=== PATIENT | male | born 1960 | race Caucasian/White ===

== ENCOUNTER 2019-08-20 15:23 | Inpatient (IN) | payer BC ==
[~2019-08-20] VITALS: Ht 172.7 cm; Wt 66.0 kg
[2019-08-20 15:57] LABS: BASOPHILS ABSOLUTE AUTO 0.05 K/mm3 (0.00-0.23); BASOPHILS PERCENT AUTO 1 % (0-2); EOSINOPHILS ABSOLUTE AUTO 0.13 K/mm3 (0.00-0.68); EOSINOPHILS PERCENT AUTO 2 % (0-6); Hematocrit 46.1 % (37.0-53.0); Hemoglobin 15.2 g/dL (13.5-17.5); IMMATURE GRAN ABSOLUTE AUTO 0.03 K/mm3 (0.00-0.10); IMMATURE GRAN PERCENT AUTO 0 % (0-1); LYMPHOCYTES ABSOLUTE AUTO 2.64 K/mm3 (0.84-5.20); LYMPHOCYTES PERCENT AUTO 36 % (21-46); MONOCYTES ABSOLUTE AUTO 0.57 K/mm3 (0.16-1.47); MONOCYTES PERCENT AUTO 8 % (4-13); Mean Corpuscular HGB 30.3 pg (26.0-34.0); Mean Corpuscular Volume 92 fL (80-100); Mean Platelet Volume 10.3 fL (9.1-12.4); NEUTROPHILS ABSOLUTE AUTO 4.01 K/mm3 (1.96-9.15); NEUTROPHILS PERCENT AUTO 54 % (41-73); Platelet Count 243 K/mm3 (150-400); RDW Coefficient Variation 12.6 % (11.7-14.2); RDW Standard Deviation 42.2 fL (35.1-46.3); Red Blood Cell Count 5.01 M/mm3 (4.30-5.90); White Blood Cell Count 7.43 K/mm3 (4.00-11.30)
[2019-08-20 16:15] LABS: Anion Gap 6 mmol/L (6-16); Blood Urea Nitrogen 14 mg/dL (8-24); Bun/Creatinine Ratio 14.7 (12.0-20.0); CO2, Blood 25 mmol/L (21-32); Calcium, Blood 9.5 mg/dL (8.5-10.1); Chloride, Blood 108 mmol/L (98-108); Creatinine, Blood 0.95 mg/dL (0.60-1.20); Glomerular Filtration Rate >60 (60-); Glucose, Blood 228 mg/dL (70-99); Sodium, Blood 139 mmol/L (136-145)
[2019-08-20 17:47] LABS: International Normalized Ratio 0.99; Prothrombin Time Results 10.6 Sec (9.7-11.5)
[2019-08-20] MEDS ORDERED: CARVEDILOL6.25 MG PO (18:11)
[2019-08-20] MEDS ORDERED: LIPITOR80 MG PO (18:11)
[2019-08-20] MEDS ORDERED: BUPROPION XL150 M1 PO (18:11)
[2019-08-20] MEDS ORDERED: LISI5 PO (18:12)
[2019-08-20] MEDS ORDERED: METFORMIN HCL500 M2 PO (18:12)
[2019-08-20] MEDS ORDERED: PRASUGREL HCL10 MG PO (18:12)
[2019-08-20] MEDS ORDERED: ASPIR 8181 MG PO (18:19)
[2019-08-20] MEDS ORDERED: FARXIGA10 MG PO (18:19)
--- NOTE | 2019-08-20 22:21 | NUR ---
ASSUMED CARE NOTE: ASSUMED CARE OF PT AT 2009, RECEVIED REPORT FROM FRED GONZALEZ RN. PT CAME UNIT VIA STRETCHER. PT ORIENTED TO ROOM. PT IS ALERT AND ORIENTEDX4, ABLE TO ANSWER QUESTIONS APPROPRIATLY. PT CAME ON 7L OF 02 VIA OXYMIZER, SPO2 @ 94% PT IN TRIPOD POSITION, UNABLE TO LAY FLAT. PT PLACED ON BIPAP WITH SETTINGS AT 12/6, 30% RR IN THE MID 30'S . HEPARIN INFUSING @ 15U/KG/HR, PUMP VERIFIED WITH JOSÉ SHAH. PT HAS 2+ PITTING EDEMA TO BLE, FAINT PULSES FELT. STRONG PULSES TO BILAT RADIAL. PT IN SINUS TACH WITH HR @ 110. BOWEL TONES HEARD IN ALL FOUR QUADRANTS. PT STATES HE HAS NO ISSUES WITH URINATION. BP STABLE, AFEBRILE. WILL CONTINUE TO MONITOR T/O SHIFT.
[2019-08-20 22:53] LABS: U Amphetamine Screen Not Detected; U Barbituate Screen Not Detected; U Benzodiazapine Screen Not Detected; U Buprenorphine Screen Not Detected; U Cannabinoids Screen Not Detected; U Cocaine Screen Not Detected; U Methadone Screen Not Detected; U Methamphetamine Screen Not Detected; U Opiates Screen Not Detected; U Oxycodone Screen Not Detected; U Phencyclidine Screen Not Detected; U Propoxyphene Screen Not Detected
--- NOTE | 2019-08-21 01:41 | NUR ---
UPDATE: PT GIVEN ATIVAN EARLIER IN THE SHIFT PER EMAR, DUE TO ANXIETY. PT IS NOW SLEEPING. PT IN SR WITH BBB, HR IN THE 80-90'S. VSS. PT HAD ONE INCONTINENT VIOD, AFTER LASIX ADMINISTRATION. ATTENDS IN PLACE.
[2019-08-21 03:44] LABS: BASOPHILS ABSOLUTE AUTO 0.04 K/mm3 (0.00-0.23); BASOPHILS PERCENT AUTO 1 % (0-2); EOSINOPHILS ABSOLUTE AUTO 0.07 K/mm3 (0.00-0.68); EOSINOPHILS PERCENT AUTO 1 % (0-6); Hematocrit 41.9 % (37.0-53.0); Hemoglobin 13.9 g/dL (13.5-17.5); IMMATURE GRAN ABSOLUTE AUTO 0.03 K/mm3 (0.00-0.10); IMMATURE GRAN PERCENT AUTO 0 % (0-1); LYMPHOCYTES ABSOLUTE AUTO 2.43 K/mm3 (0.84-5.20); LYMPHOCYTES PERCENT AUTO 29 % (21-46); MONOCYTES ABSOLUTE AUTO 0.89 K/mm3 (0.16-1.47); MONOCYTES PERCENT AUTO 11 % (4-13); Mean Corpuscular HGB 31.1 pg (26.0-34.0); Mean Corpuscular HGB Conc 33.2 g/dL (31.5-36.5); Mean Corpuscular Volume 94 fL (80-100); Mean Platelet Volume 10.2 fL (9.1-12.4); NEUTROPHILS ABSOLUTE AUTO 4.95 K/mm3 (1.96-9.15); NEUTROPHILS PERCENT AUTO 59 % (41-73); Platelet Count 196 K/mm3 (150-400); RDW Coefficient Variation 12.7 % (11.7-14.2); RDW Standard Deviation 43.7 fL (35.1-46.3); Red Blood Cell Count 4.47 M/mm3 (4.30-5.90); White Blood Cell Count 8.41 K/mm3 (4.00-11.30)
[2019-08-21 04:08] LABS: Alanine Aminotransfer (ALT/SGP 17 U/L (12-78); Albumin, Blood 3.1 g/dL (3.4-5.0); Albumin/Globulin Ratio 0.9 (0.8-1.8); Alk Phos 101 U/L (50-136); Anion Gap 5 mmol/L (6-16); Aspartate Aminotrans (AST/SGOT 17 U/L (12-37); Bilirubin, Total 1.4 mg/dL (0.1-1.0); Blood Urea Nitrogen 12 mg/dL (8-24); Bun/Creatinine Ratio 15.5 (12.0-20.0); CO2, Blood 26 mmol/L (21-32); Calcium, Blood 8.7 mg/dL (8.5-10.1); Chloride, Blood 110 mmol/L (98-108); Creatinine, Blood 0.77 mg/dL (0.60-1.20); Globulin, Blood 3.3 g/dL (2.2-4.0); Glomerular Filtration Rate >60 (60-); Glucose, Blood 138 mg/dL (70-99); Magnesium, Blood 2.2 mg/dL (1.6-2.4); Potassium, Blood 3.5 mmol/L (3.5-5.5); Sodium, Blood 141 mmol/L (136-145); Total Protein, Blood 6.4 g/dL (6.4-8.2)
--- NOTE | 2019-08-21 04:23 | NUR ---
CALLED , REGARDING ELEVATING TROP. WILL LOOK OVER CHART FOR CARDIAC CONSULT.
--- NOTE | 2019-08-21 05:40 | NUR ---
SHIFT SUMMARY: BLOOD PRESSURES ARE SOFT, MAP GREATER THAN 65, ASYPTOMATIC. PT ALERT AND ORIENTEDX4. PT DENIES SOB AT THIS TIME. RR 15-20, NO RESPRIATORY DISTRESS NOTED. PT HAS WORN BIPAP THROUGHOUT SHIFT, SETTINGS 13/8, FiO2 30%, SPO2 98% PT REMAINS AFEBRILE. TROPONIN LEVELS SLIGHTLY INCREASED OVERNIGHT, PHYSICAN AWARE. PT HAS BEEN IN SR WITH BBB NOTED, HR BETWEEN 8O-105. PT RECEVIED 1MG OF ATIVAN TO HELP WITH ANXIETY. PT DENIED CHEST PAIN T/O SHIFT. HEPARIN IS CURRENTLY RUNNING AT 16U/KG/HR. BED AT LOWEST LEVEL, CALL LIGHT WITHIN REACH. WILL CONTINUE TO MONITOR PT T/O SHIFT.
--- NOTE | 2019-08-21 08:53 | NUR ---
Echocardiogram using 0.60ml of Definity contrast performed./
--- NOTE | 2019-08-21 11:11 | NUR ---
SYSTOLIC BP DROPPED TO 66/47 MAP 53 WHILE PT SITTING UP IN CHAIR, BP RECHECKED AND ONLY IMPROVED TO 78/59. PT RETURNED TO BED AND PT IMPROVED TO 93/69 MAP 77. DURING HYPOTENTIONS PT DECLINED FEELING DIZZY, SHORT OF BREATH OR ANY CHEST PAIN. PT TRANSFERRED BACK TO BED ON HIS OWN, WITH TWO STAFF MEMBERS READY TO ASSIST. DR ELLISON NOTIFED AND ORDERS RECIEVED TO CALL BACK MAP DROPS AGAIN TO <65 AND TO TRY AND KEEP THE BIPAP OFF THE PT.
--- NOTE | 2019-08-21 13:05 | NUR ---
REASSESSMENT HEPARIN GTT D/C'D PER MD'S ORDER AND LOVENOX STARTED. PT'S BP HAS IMPROVED SINCE RETURNING TO BED, PT CONTINUES TO DECLINE ANY SYMPTOMS RELATED TO HYPOTENSION. MONITOR SHOWS PT TO BE IN A SINUS TACH MID TO LOW 100'S FOR RATE. ORDERS RECEIVED FOR RESP PANEL AND COVID TESTING, PT PLACED IN ENHANCED DROPLET ISOLATION UNTIL RESULTED. LUNG SOUNDS REMAIN UNCHANGED, PT HAS BEEN WEANED TO 4L NC AND SPO2 REMAINS ABOVE 95%. LASIX DOSE HELD THIS AM PER ORDER PERAMETERS.
--- NOTE | 2019-08-21 16:00 | NUR ---
REASSESSMENT PT'S BLOOD PRESSURES CONTINUE TO BE LABILE AND PT REMAINS ASYMPTOMATIC. PT HAS BEEN WEANED DOWN TO 4L NC AND MAINTAINS SPO2 IN MID 90'S. PT REPORTS HE DOESN'T TOLERATE LAYING DOWN IN BED AND PREFERS TO SIT AT EDGE OF BED LEANING ON TABLE. MONITOR SHOWS PT TO REMAIN IN SINUS TACH. DR DUEÑAS CONSULTED FOR RESP FAIL AND RECENTLY SAW PT, AWAITING TO SEE NEW ORDERS.
--- NOTE | 2019-08-21 18:22 | NUR ---
SHIFT SUMMARY PT HAS BEEN WEANED DOWN TO 4L OF O2 VIA NC AND TOLERATED IT MOST OF THE DAY. THIS EVENING PT REQUESTED TO GO BACK ON BIPAP 13/8 FIO2 30%. CARDIOLOGY CONSULTED THIS EVENING AND NEW ORDERS RECEIVED. PLAN IS TO SEE IF PT WILL TOLERATE NEW MEDICATIONS TO WORK ON GETTING BACK TO HIS FAMILY IN [place]. BP'S HAVE BEEN LABIAL THROUGHOUT DAY AND NEW MONITORING PARAMETERS HAVE BEEN RECEIVED. HEPARIN GTT WAS STOPPED TODAY PER ORDERS. PT REPORTS OVERALL HE FEELS HIS BREATHING IS MUCH IMPROVED. MONITOR CONTINUES TO SHOW PT IN A SINUS TACH HR 100'S-LOW 110'S.
[2019-08-21 18:34] LABS: Adenovirus Not Detected (NOT DETECT); Bordetella pertussis Not Detected (NOT DETECT); Chlamydophila pneumoniae Not Detected (NOT DETECT); Coronavirus 229E Not Detected (NOT DETECT); Coronavirus HKU1 Not Detected (NOT DETECT); Coronavirus NL63 Not Detected (NOT DETECT); Coronavirus OC43 Not Detected (NOT DETECT); Human Metapneumovirus Not Detected (NOT DETECT); Human Rhinovirus/Enterovirus Not Detected (NOT DETECT); Influenza A/2009-H1 Not Detected (NOT DETECT); Influenza A/H1 Not Detected (NOT DETECT); Influenza A/H3 Not Detected (NOT DETECT); Influenza B Not Detected (NOT DETECT); Mycoplasma pneumoniae Not Detected (NOT DETECT); Parainfluenza Virus 1 Not Detected (NOT DETECT); Parainfluenza Virus 2 Not Detected (NOT DETECT); Parainfluenza Virus 3 Not Detected (NOT DETECT); Parainfluenza Virus 4 Not Detected (NOT DETECT); Respiratory Syncytial Virus Not Detected (NOT DETECT)
--- NOTE | 2019-08-21 19:15 | NUR ---
ASSUME CARE: REPORT RECIEVED FROM TASH OFF GOING RN. MONITOR INTACT SHOWING SINUS TACH HEART RATE 100'S-110'S. DENIES DISCOMFORT SITTING ON SIDE OF BED.TRIPODDING. BIPAP IN PLACE. / 30% FIO2. LUNG SOUNDS CLEAR UPPER LOBES WITH DECREASED SOUNDS IN THE BASES. RESPIRATIONS REGULAR AND EASY AT REST. ABDOMEN SOFT WITH BOWEL SOUNDS FOUR QUADS. VOIDS VALENTE URINE PER URINAL. AGUILAR WELL IN BED REPOSITIONS SELF IN BED. CONTINUE TO MONITOR AND REPORT CHANGE IN PATIENT CONDITION.
[2019-08-22 03:40] LABS: BASOPHILS ABSOLUTE AUTO 0.05 K/mm3 (0.00-0.23); BASOPHILS PERCENT AUTO 1 % (0-2); EOSINOPHILS ABSOLUTE AUTO 0.14 K/mm3 (0.00-0.68); EOSINOPHILS PERCENT AUTO 2 % (0-6); Hematocrit 40.2 % (37.0-53.0); Hemoglobin 13.6 g/dL (13.5-17.5); IMMATURE GRAN ABSOLUTE AUTO 0.02 K/mm3 (0.00-0.10); IMMATURE GRAN PERCENT AUTO 0 % (0-1); LYMPHOCYTES ABSOLUTE AUTO 2.17 K/mm3 (0.84-5.20); LYMPHOCYTES PERCENT AUTO 33 % (21-46); MONOCYTES ABSOLUTE AUTO 0.71 K/mm3 (0.16-1.47); MONOCYTES PERCENT AUTO 11 % (4-13); Mean Corpuscular HGB 30.9 pg (26.0-34.0); Mean Corpuscular HGB Conc 33.8 g/dL (31.5-36.5); Mean Platelet Volume 10.5 fL (9.1-12.4); NEUTROPHILS ABSOLUTE AUTO 3.52 K/mm3 (1.96-9.15); NEUTROPHILS PERCENT AUTO 53 % (41-73); Platelet Count 193 K/mm3 (150-400); RDW Coefficient Variation 12.6 % (11.7-14.2); RDW Standard Deviation 41.2 fL (35.1-46.3); White Blood Cell Count 6.61 K/mm3 (4.00-11.30)
[2019-08-22 03:43] LABS: Mean Corpuscular Volume 91 fL (80-100)
[2019-08-22 04:03] LABS: Magnesium, Blood 2.1 mg/dL (1.6-2.4)
[2019-08-22 04:04] LABS: Anion Gap 7 mmol/L (6-16); Blood Urea Nitrogen 21 mg/dL (8-24); Bun/Creatinine Ratio 21.5 (12.0-20.0); CO2, Blood 28 mmol/L (21-32); Calcium, Blood 8.8 mg/dL (8.5-10.1); Chloride, Blood 105 mmol/L (98-108); Creatinine, Blood 0.98 mg/dL (0.60-1.20); Glomerular Filtration Rate >60 (60-); Glucose, Blood 138 mg/dL (70-99); Phosphorus, Blood 4.1 mg/dL (2.5-4.9); Potassium, Blood 3.6 mmol/L (3.5-5.5); Sodium, Blood 140 mmol/L (136-145)
--- NOTE | 2019-08-22 05:30 | NUR ---
DR DUEÑAS NOTIFIED OF BLOOD PRESSURE TRENDS SINCE MID [facility] ORDERS NOTED 250ML NS BOLUS STARTED CONTINUE TO MONITOR AND REPORT CHANGE IN PATIENT CONDITION.
--- NOTE | 2019-08-22 06:00 | NUR ---
SHIFT SUMMARY: RESTS QUIETLY WHEN UNDISTURBED. MONITOR INTACT SHOWING SINUS RHYTHM. HEART RATE 80'S-100'S. DENIES DISCOMFORT HAS BEEN ON BIPAP MOST OF NOC RT IN TO CHANGE BIPAP, GIVE PT A BREAK FROM BIPAP TOLERATES WELL. LUNG SOUNDS CLEAR UPPER LOBES WITH DECREASED SOUNDS IN THE BASES. SPO2 94-98% ABDOMEN SOFT WITH BOWEL SOUNDS FOUR QUADS. VOIDS VALENTE URINE PER URINAL. AGUILAR WELL IN BED REPOSITIONS SELF IN BED AND SITTING ON SIDE OF BED. 250ML NORMAL SALINE BOLUS GIVEN TOLERATES WELL. CONTINUE TO MONITOR AND REPORT CHANGE IN PATIENT CONDITION
--- NOTE | 2019-08-22 09:15 | NUR ---
ASSUMED CARE OF PT AT O700. PT IS ALERT AND ORIENT, FOLLOWS COMMAND. UPON ITITIAL ASSESSMENT, PT WAS FOUND TO HAVE REMOVED HIS OXYGEN. SPO2 WAS MAINTAINING ON ROOM AIR, WITH NO COMPLAINTS OF DYSPNEA. SBP WAS FOUND TO BE IN THE 70'S, HOWEVER MEAN PREASSURES WERE >55. PT DENIED ANY SYMPTOMS RELATED TO THE HYPOTENSION. NOTIFIED DR DUEÑAS OF PT'S BP'S AND INABILITY TO GIVE PT'S NEW CARDIAC MEDS. MONITOR SHOWS PT TO BE IN SINUS RHYTHM. PT REPORTS THAT HE NEEDS TO BE HEADING HOME TO [place] BY WEDNESDAY.
--- NOTE | 2019-08-22 13:09 | NUR ---
REASSESSMENT BP'S HAVE IMPROVED SOME AFTER MIDODRINE DOSE. DISCUSSED WITH DR DUEÑAS AND WE WILL SLOWING CATCH THE PT UP ON MISSED DOSES OF CARDIAC MEDS AND SPREAD OUT THE DOSING TIMES TO SEE HOW PT CAN TOLERATE. PT REPORTS THAT HE IS "FEELING GOOD" MONITOR SHOWS PT TO BE IN SINUS RHYTHM TO SINUS TACH WITH ACTIVITY. PT IS TOLERATING MOVING AROUND ROOM INDEPENDANTLY AND SITTING UP IN THE CHAIR. LUNGS ARE CLEAR TO ASCULTATION AND PT REMAINS ON ROOM AIR. OTHER VITALS HAVE REMAINED STABLE.
--- NOTE | 2019-08-22 16:51 | NUR ---
REASSESSMENT PT'S BP'S CONTINUE TO BE LABIAL WITH SYSTOLIC'S PRESSURES 70'S-100'S. PT DENIES ANY SYMPTOMS ASSOCIATED WITH HYPOTENSION. PT IS AMBULATING INDEPENDENTLY IN ROOM. HAVE GIVEN PT TORSIMIDE AND SPIRANOLACTONE AFTER BP HAS MAINTAIN UP FOR PERIOD OF TIME. PT DENIES ANY DYSPNEA AND REMAINS ON ROOM AIR. HAVE BEEN COORDINATING WITH SOCIAL WORK/PT ABOUT PLANNED LIFE VEST AT DISCHARGE AND WHAT INFO WOULD BE NEEDED FOR A FLIGHT HOME.
--- NOTE | 2019-08-22 18:32 | NUR ---
SHIFT SUMMARY THROUGHOUT THE DAY PT HAS MAINTAINED HAVING LABILE BP'S. WAS ABLE TO GIVE PT ALL OF SCHEDUALED NEW CARDIAC MEDS SPACED THROUGH OUT THE DAY AND THE ADDED MIDODRINE APPEARS TO HAVE HELPED. PT HAS REMAINED ON ROOM AIR AND DENIES ANY DYSPNEA. MONITOR SHOWS PT TO BE IN SINUS RHYTHM/SINUS TACH RATES 90'S-100'S. CARE MANAGEMENT IS ASSISTING IN COORDINATING LIFE VEST AT DISCHARGE. PT HAS BEEN UP IN CHAIR OR AMBULATING IN ROOM INDEPENDTLY AND HAS TOLERATED LOWER BP'S WHEN UP. UPDATED DR DUEÑAS ON PT'S STATUS THIS EVENING.
--- NOTE | 2019-08-22 19:15 | NUR ---
ASSUME CARES" REPORT RECIEVED FROM TASH OFF GOING RN. MONITOR INTACT SHOWING SINUS RHYTHM-SINUS TACH. HEART RATE 90'S-100'S. DENIES DISCOMFORT. LUNG SOUNDS CLEAR RESPIRATIONS REGULAR AND EASY ON ROOM AIR SPO2 94-97% ABDOMEN SOFT WITH BOWEL SOUNDS FOUR QUADS. VOIDS VALENTE URINE PER URINAL COOPERATIVE TO CARES. NO EDEMA NOTED CONTINUE TO MONITOR AND REPORT CHANGE IN PATIENT CONDITION.
--- NOTE | 2019-08-23 03:17 | NUR ---
ASSUMED CARE OF PATIENT, PATIENT SLEEPING WITH BIPAP IN PLACE, AWAKENS WITH SLIGHT STIMULI FOR LABS AND VITALS, HYPOTENSION CONTINUES, PATIENT VERBALIZED THAT HE IS FEELING BETTER. BACK TO SLEEP WHEN UNDISTURBED.
[2019-08-23 03:50] LABS: BASOPHILS ABSOLUTE AUTO 0.05 K/mm3 (0.00-0.23); BASOPHILS PERCENT AUTO 1 % (0-2); EOSINOPHILS ABSOLUTE AUTO 0.16 K/mm3 (0.00-0.68); EOSINOPHILS PERCENT AUTO 2 % (0-6); Hematocrit 39.8 % (37.0-53.0); Hemoglobin 13.5 g/dL (13.5-17.5); IMMATURE GRAN ABSOLUTE AUTO 0.01 K/mm3 (0.00-0.10); IMMATURE GRAN PERCENT AUTO 0 % (0-1); LYMPHOCYTES ABSOLUTE AUTO 2.62 K/mm3 (0.84-5.20); LYMPHOCYTES PERCENT AUTO 39 % (21-46); MONOCYTES ABSOLUTE AUTO 0.76 K/mm3 (0.16-1.47); MONOCYTES PERCENT AUTO 11 % (4-13); Mean Corpuscular HGB 31.3 pg (26.0-34.0); Mean Corpuscular HGB Conc 33.9 g/dL (31.5-36.5); Mean Corpuscular Volume 92 fL (80-100); Mean Platelet Volume 10.7 fL (9.1-12.4); NEUTROPHILS ABSOLUTE AUTO 3.09 K/mm3 (1.96-9.15); NEUTROPHILS PERCENT AUTO 46 % (41-73); Platelet Count 191 K/mm3 (150-400); RDW Coefficient Variation 12.6 % (11.7-14.2); RDW Standard Deviation 42.6 fL (35.1-46.3); Red Blood Cell Count 4.31 M/mm3 (4.30-5.90); White Blood Cell Count 6.69 K/mm3 (4.00-11.30)
[2019-08-23 04:45] LABS: Anion Gap 8 mmol/L (6-16); Blood Urea Nitrogen 28 mg/dL (8-24); Bun/Creatinine Ratio 27.5 (12.0-20.0); CO2, Blood 27 mmol/L (21-32); Calcium, Blood 8.9 mg/dL (8.5-10.1); Chloride, Blood 105 mmol/L (98-108); Creatinine, Blood 1.02 mg/dL (0.60-1.20); Glomerular Filtration Rate >60 (60-); Glucose, Blood 160 mg/dL (70-99); Phosphorus, Blood 4.8 mg/dL (2.5-4.9); Potassium, Blood 3.9 mmol/L (3.5-5.5); Sodium, Blood 140 mmol/L (136-145)
--- NOTE | 2019-08-23 06:07 | NUR ---
SUMMARY PATIENT AWAKE, REMOVING BIPAP, TON RA WITHOUT DIFFICULTY. HYPOTENSION CONTINUES. PATIENT VERBALIZED FEELING GOOD THIS MORNING. AWAITING COVID TEST RESULTS.
--- NOTE | 2019-08-23 07:37 | NUR ---
BEGINNING OF SHIFT Assumed care at 0700. Bedside report received from Ondina SHAH. Pt A&O x 4. Answers questions. Follows commands. Verbalizes needs. Pt on room air. SpO2 90% or greater. SR per monitor. BP low. Pt denies shortness of breath, lightheadedness, or dizziness. Pt independently repositions in bed and sits up on edge of bed. Pt states he wants to leave hospital by Wednesday and go home, even if that means he is signing out AMA.
--- NOTE | 2019-08-23 09:19 | NUR ---
DR ELLISON IN TO SEE PT Plan of care discussed. No new orders this time. Will discuss discharge planning with cardiology and critical care providers. Will discuss life vest with care management.
--- NOTE | 2019-08-23 09:30 | NUR ---
DR DUEÑAS IN TO SEE PT States he is agreeable with pt discharging today. States plan for Rapid COVID-19 test.
--- NOTE | 2019-08-23 14:00 | NUR ---
MIDSHIFT Pt independent in room. Asymptomatic with low blood pressures. Torsemide and spironalactone given late due to low blood pressures.
--- NOTE | 2019-08-23 17:00 | NUR ---
CALL PLACED TO DR LAGUNAS Notified that pt will be reciving life vest today. Pt states he would like to stay in hospital tonight and discharge tomorrow morning. Dr Lagunas states plan to discharge pt in the morning. Pt okay for PCU status at this time.
--- NOTE | 2019-08-23 19:21 | NUR ---
SUMMARY No acute changes to initial assessment. Pt has been hypotensive for majority of shift, but is asymptomatic with low BPs and ambulates independently in room. Pt awaiting life vest fitting this evening.
--- NOTE | 2019-08-23 19:33 | NUR ---
ASSESSMENT/ASSUMED CARE PT SITTING UP IN BED TALKING WITH REP FOR LIFE VEST. PT DENIES PAIN OR DISCOMFORT. STATES,"I'M FEELING GOOD RIGHT NOW". LUNGS CLEAR BUT DECREASED IN THE BASES ON ROOMAIR. RESP EVEN AND NONLABORED. DENIES SOB OR COUGH. HEART RATE REGURAL. BP STABLE. TRACE PEDAL EDEMA. PT STATES,"IT IS SO MUCH BETTER THAN WHEN I CAME INTO THE HOSPITAL". BT+ ABD SOFT AND NONTENDER. DENIES N/V. VOIDING SMALL AMTS CLEAR YELLOW URINE. IV 20G LEFT AC SALINE LOCKED, SITE CLEAR AND FLUSHES WITHOUT DIFFICUTLY. IV 20G TO RIGHT HAND SALINE LOCKED, SITE CLEAR AND FLUSHES WITHOUT DIFFICUTLY. LIFE VEST BEING FITTED TO PT AND TEACHING ABOUT USE.
--- NOTE | 2019-08-24 05:32 | NUR ---
ASSUMED CARE OF PT AT 0300. REPORT RECEIVED. PT PRESENTS IN BED. ALERT AND ORIENTED. PLEASANT AND COOPERATIVE WITH CARE AND ASSESSMENT. DENIES CHEST PAIN OR PRESSURE. NO COMPLAINTS OF DYSPNEA. PT HAS BEEN UP INDEPENDENTLY IN ROOM. WILL CONTINUE TO MONITOR PT, AND WILL REPORT OFF TO ONCOMING RN.
--- NOTE | 2019-08-24 09:26 | NUR ---
BEGINNING OF SHIFT Assumed care at 0700. Bedside report recieved from Kobe SHAH. Pt A&O x 4. Answers questions. Follows commands. Verbalizes needs. Independent in room. PCU status. Plan to discharge today. Pt continues to have hypotension, however is totally asymptomatic. Denies lightheadedness or dizziness. SR per monitor. Dr Lagunas in to see pt this AM at 0730. Discharge orders written. Pt states he will parts picker his medications from [facility] pharmacy.
[2019-08-24] MEDS ORDERED: LOSA50 PO (10:46)
[2019-08-24] MEDS ORDERED: METO25ER PO (10:47)
[2019-08-24] MEDS ORDERED: MIDO5 PO (10:48)
[2019-08-24] MEDS ORDERED: TICA90TA PO (10:49)
[2019-08-24] MEDS ORDERED: ALDACTONE25 MG PO (10:49)
[2019-08-24] MEDS ORDERED: TORSE20 PO (10:51)
--- NOTE | 2019-08-24 13:12 | NUR ---
DISCHARGE Pt departed from unit at 1140 accompanied by FABIO Rolle. Pt tolerated ambulation. Entered vehicle driven by friend. 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 He then plans to be driven up to [place] and fly home to [place] tomorrow. This RN thoroughly reviewed medications with pt. Discussed importance of taking spironolactone and torsemide to prevent pulmonary edema. Discussed midodrine frequency and hold parameters. Discussed importance of taking metoprolol and losartan if BP permits. Discussed importance of staggering medications as BP permits. Pt had medication bottles from pre-admission regimen; this RN reviewed bottles and sorted out the ones that pt is to discontinue. Pt verbalized understanding. Pt departed from unit with life vest on.
== END 2019-08-24 11:40 | disposition home or self-care (01) | DRG 291 ==
LOC: ER 15:23 → ICUW 20:17 → ICUE 20:17
PROVIDERS: Family Medicine; Nurse Practitioner Acute Care; Student in an Organized Health Care Education/Training Program; ADMIT Internal Medicine
PROC: 5A09357 Assistance with Respiratory Ventilation, Less than 24 Consecutive Hours, Continuous Positive Airway Pressure (ICD-10-PCS; principal; 2019-08-20)
DX: I50.23 Acute on chronic systolic (congestive) heart failure (principal); J96.01 Acute respiratory failure with hypoxia; J98.11 Atelectasis; F17.210 Nicotine dependence, cigarettes, uncomplicated; J44.9 Chronic obstructive pulmonary disease, unspecified; I25.10 Atherosclerotic heart disease of native coronary artery without angina pectoris; F41.0 Panic disorder [episodic paroxysmal anxiety]; Z95.5 Presence of coronary angioplasty implant and graft; I95.9 Hypotension, unspecified; I25.5 Ischemic cardiomyopathy; E11.9 Type 2 diabetes mellitus without complications; E78.5 Hyperlipidemia, unspecified; Z79.82 Long term (current) use of aspirin; I27.20 Pulmonary hypertension, unspecified; Z20.828 Contact with and (suspected) exposure to other viral communicable diseases; Z79.84 Long term (current) use of oral hypoglycemic drugs
CPT/HCPCS: 0099U; 36415; 71045; 71260; 80048; 80053; 80069; 82533; 82947; 83036; 83605; 83735; 83880; 84145; 84484; 85025; 85379; 85610; 85730; 87040; 93005; 93010; 93970; 94660; 96374; 96375; 96376; 99285-25; A9270; A9270-GY; C8929; J0696; J1644; J1650; J1940; J2060; J2250; J2543; J7050; Q9957; Q9967; U0002; U0003